=== PATIENT | male | born 1985 | race Caucasian/White ===

== ENCOUNTER 2023-02-28 16:07 | Emergency (ER) | payer MEDICARE ==
[~2023-02-28] VITALS: Ht 165.1 cm; Wt 73.0 kg
[~2023-02-28 16:07] MED LIST: OTC MED
[2023-02-28] MEDS ORDERED: KETOROLAC 30MG/ML VIAL IV STA (16:19)
[2023-02-28] MEDS ORDERED: ONDANSETRON HCL 4MG/2ML INJ IV STA (16:19)
[2023-02-28] MEDS ORDERED: SODIUM CHLORIDE 0.9% 1,000 ML IV ONE (16:30)
[2023-02-28 16:49] LABS: BASOPHILS % 0.4 % (0.0-2.0); EOSINOPHILS % 2.8 % (0.0-5.0); HEMATOCRIT. 51.3 % (42.0-52.0); HEMOGLOBIN. 18.2 g/dL (14.0-18.0); LYMPHOCYTES % 15.8 % (20.0-50.0); MEAN CORPUSCULAR HEMOGLOBIN 34.7 pg (28.0-32.0); MEAN CORPUSCULAR VOLUME 97.9 fL (80.0-94.0); MEAN PLATELET VOLUME 7.8 fl (7.4-10.4); MONOCYTES % 9.1 % (2.0-8.0); NEUTROPHILS % 71.9 % (40.0-76.0); PLATELET 211 x1000/uL (130-400); RED BLOOD CELL COUNT 5.24 mill/uL (4.7-6.1); RED CELL DISTRIBUTION WIDTH 12.6 % (11.6-14.6)
[2023-02-28 17:00] LABS: CHLORIDE 101 mEq/L (98-107)
[2023-02-28 17:10] LABS: ETHANOL BLOOD < 10 mg/dL
[2023-02-28 17:28] LABS: CLARITY URINE CLEAR (CLEAR); COLOR URINE DARK YELLOW (YELLOW); KETONES URINE 4+ (NEGATIVE); LEUKOCYTE ESTERASE URINE 1+ (NEGATIVE); NITRITE URINE NEGATIVE (NEGATIVE); OCCULT BLOOD URINE NEGATIVE (NEGATIVE); PROTEIN URINE 1+ (NEGATIVE); SPECIFIC GRAVITY URINE 1.022 (1.005-1.030)
[2023-02-28 17:46] LABS: *AMPHETAMINES SCREEN URINE NEGATIVE (NEGATIVE); *BARBITURATES SCREEN URINE NEGATIVE (NEGATIVE); *BENZODIAZEPINES SCREEN URINE NEGATIVE (NEGATIVE); *COCAINE SCREEN URINE NEGATIVE (NEGATIVE); CANNABINOID URINE SCREEN PRESUMTIVE POSITIVE (NEGATIVE); METHADONE URINE SCREEN NEGATIVE (NEGATIVE); OPIATES URINE SCREEN NEGATIVE (NEGATIVE); PHENCYCLIDINE URINE SCREEN NEGATIVE (NEGATIVE)
[2023-02-28] MEDS ORDERED: NITR-87 MT (18:56)
[2023-02-28] MEDS ORDERED: OMEP40CA20 MT (18:56)
[2023-02-28] MEDS ORDERED: ONDA4TAB50 MT (18:56)
[2023-02-28] MEDS ORDERED: POTASSIUM CHLORIDE 20MEQ TABLET SR PO ONE (19:15)
[2023-02-28 19:36] VITALS: BP 135/76
== END 2023-02-28 19:37 | disposition home or self-care (01) ==
LOC: ER 16:07
DX: N30.90 Cystitis, unspecified without hematuria (principal)
CPT/HCPCS: 36415; 74176; 80053; 80305; 80320; 81003; 83690; 85025; 96361; 96374; 96375; 99285; J1885; J2405; J7030; G0480

== ENCOUNTER 2023-06-22 12:09 | Emergency (ER) | payer SELFPAY ==
[~2023-06-22] VITALS: Ht 157.5 cm; Wt 66.0 kg
[~2023-06-22 12:09] MED LIST changes: +NITR-87 MT; +OMEP40CA20 MT; +ONDA4TAB50 MT
[2023-06-22 12:27] VITALS: O2SAT 98
[2023-06-22] MEDS ORDERED: CEPH500C2 MT (12:40)
[2023-06-22] MEDS ORDERED: IBUP-2029 MT (12:40)
[2023-06-22] MEDS ORDERED: TETANUS, DIPHTHERIA, PERTUSSIS VAC/PF 0.5ML (>10YR OLD) IM ONE ×2 (12:45→15:30)
[2023-06-22] MEDS ORDERED: IBUPROFEN 600MG TABLET PO ONE (12:45)
[2023-06-22] MEDS ORDERED: IBUPROFEN 600MG TABLET PO NR (15:15)
[2023-06-22 15:20] VITALS: BP 130/70; PULSE 85; RESP 16; TEMP 98.6
== END 2023-06-22 15:30 | disposition home or self-care (01) ==
LOC: ER 12:09
DX: S91.311A Laceration without foreign body, right foot, initial encounter (principal); M79.671 Pain in right foot; X58.XXXA Exposure to other specified factors, initial encounter; Y93.89 Activity, other specified; Y92.89 Other specified places as the place of occurrence of the external cause; Y99.8 Other external cause status
CPT/HCPCS: 73630; 90471; 90715; 99283

== ENCOUNTER 2024-07-26 09:39 | Emergency (ER) | payer MEDICAID ==
[~2024-07-26] VITALS: Ht 172.7 cm; Wt 64.0 kg
[~2024-07-26 09:39] MED LIST changes: +CEPH500C2 MT; +IBUP-2029 MT
[2024-07-26 09:43] VITALS: O2SAT 98
[2024-07-26] MEDS: MORPHINE SULFATE 4 MG/ML INJ (FOR IV/IM USE) IV STA (10:23)
[2024-07-26] MEDS: METOCLOPRAMIDE HCL 10MG/2ML VIAL IV STA (10:23)
[2024-07-26] MEDS: SODIUM CHLORIDE 0.9% 1,000 ML IV ONE (10:23)
[2024-07-26] MEDS: PANTOPRAZOLE SODIUM 40 MG/VIAL IV STA (10:23)
[2024-07-26 10:36] LABS: CARBON DIOXIDE 22 mEq/L (21-32); CHLORIDE 104 mEq/L (98-107); POTASSIUM 3.7 mEq/L (3.5-5.1); SODIUM 137 mEq/L (136-145)
[2024-07-26 10:37] LABS: CALCIUM 10.3 mg/dL (8.7-10.4)
[2024-07-26 10:39] LABS: BASOPHILS % 0.6 % (0.0-2.0); DIFFERENTIAL COMMENT 0; EOSINOPHILS % 6.2 % (0.0-5.0); HEMATOCRIT. 56.1 % (42.0-52.0); HEMOGLOBIN. 19.2 g/dL (14.0-18.0); LYMPHOCYTES % 23.1 % (20.0-50.0); MEAN CORPUSCULAR HEMOGLOBIN 34.3 pg (28.0-32.0); MEAN CORPUSCULAR HGB CONC 34.2 g/dL (31.0-37.0); MEAN CORPUSCULAR VOLUME 100.2 fL (80.0-94.0); MEAN PLATELET VOLUME 8.9 fl (7.4-10.4); MONOCYTES % 9.8 % (2.0-8.0); NEUTROPHILS % 60.3 % (40.0-76.0); PLATELET 196 x1000/uL (130-400); RED CELL DISTRIBUTION WIDTH 12.7 % (11.6-14.6); WHITE BLOOD COUNT 8.7 x1000/uL (4.5-11.0)
[2024-07-26 10:41] LABS: PROTHROMBIN TIME 10.8 sec (9.6-11.0)
[2024-07-26 10:42] LABS: GLUCOSE 111 mg/dL (70-105); UREA NITROGEN BLOOD 9 mg/dL (9-23)
[2024-07-26 10:43] LABS: ALANINE AMINOTRANSFERASE 162 IU/L (10-49)
[2024-07-26 10:44] LABS: ALBUMIN 5.1 g/dL (3.2-4.8); ASPARTATE AMINOTRANSFERASE 114 IU/L (<34); BILIRUBIN DIRECT 0.3 mg/dL (<=3.0); BILIRUBIN TOTAL 1.1 mg/dL (0.1-1.0); PROTEIN TOTAL 9.1 g/dL (6.0-8.3)
[2024-07-26 10:47] LABS: ETHANOL BLOOD < 10 mg/dL (<10)
[2024-07-26 12:00] VITALS: TEMP 36.66960
[2024-07-26] MEDS ORDERED: PROT40 MT (12:45)
[2024-07-26 13:04] VITALS: BP 116/75; PULSE 62; RESP 16; O2SAT 100
== END 2024-07-26 13:07 | disposition home or self-care (01) ==
LOC: ER 09:47
DX: R74.01 Elevation of levels of liver transaminase levels (principal); K29.20 Alcoholic gastritis without bleeding; F12.10 Cannabis abuse, uncomplicated; Z79.899 Other long term (current) drug therapy; Y90.0 Blood alcohol level of less than 20 mg/100 ml
CPT/HCPCS: 80076; 80048; 80320; 83690; 85025; 85610; 36415; 74176; 96361; 96374; 96375; 99285; J2765; J2470; J2270; J7030; Z7610; G0480